=== PATIENT | female | born 1950 | race Caucasian/White ===

== ENCOUNTER → 2021-12-17 14:37 | Outpatient (BNVA) | payer MEDICARE, SELFPAY | PROVIDERS: Visit Provider Nurse Practitioner | DX: E55.9 Vitamin D deficiency, unspecified (principal); Z13.6 Encounter for screening for cardiovascular disorders | CPT/HCPCS: 80053; 80061; 82306; 84443; 85025 ==

== ENCOUNTER → 2022-03-30 11:10 | Outpatient (BNVA) | payer MEDICARE, SELFPAY | PROVIDERS: Visit Provider Nurse Practitioner Family | DX: R05.9 Cough, unspecified (principal); J06.9 Acute upper respiratory infection, unspecified | CPT/HCPCS: 87426 ==

== ENCOUNTER → 2022-07-28 09:41 | Outpatient (BNVA) | payer MEDICARE, SELFPAY | PROVIDERS: PCP Nurse Practitioner; Visit Provider Nurse Practitioner | DX: M25.511 Pain in right shoulder (principal) | CPT/HCPCS: 73030 ==

== ENCOUNTER → 2023-01-25 12:04 | Outpatient (BNVA) | payer MEDICARE, SELFPAY | PROVIDERS: PCP Nurse Practitioner; Visit Provider Nurse Practitioner | DX: Z13.6 Encounter for screening for cardiovascular disorders (principal) | CPT/HCPCS: 80053; 80061; 85025 ==

== ENCOUNTER 2023-02-09 14:23 | Outpatient (CLI) | payer MEDICARE, SELFPAY ==
--- NOTE | 2023-02-09 14:36 | MM_ITS ---
WS: [id number] Bilateral screening 3D tomosynthesis digital mammogram, 02/09/2023 Clinical Data: Z12.31 - Encounter for screening mammogram for malignant ... Comparison: 04/01/2021 Findings: The breast parenchymal pattern shows fibroglandular tissue. No spiculated masses or clustered calcifi cations are seen. There are no secondary signs of carcinoma. There are intact bilateral augmentation mammoplasty implants. Impression: 1. Negative bilateral mammogram unchanged. 2. Recommend annual screening mammograms. MM/[place] [id number] BIRADS: 1-Negative FOLLOW UP: 1 Year Follow-up The CAD truckload checker was used.
== END 2023-02-09 14:24 | disposition home or self-care (01) ==
PROVIDERS: PCP Nurse Practitioner; Visit Provider Nurse Practitioner
DX: Z12.31 Encounter for screening mammogram for malignant neoplasm of breast (principal); Z98.82 Breast implant status
CPT/HCPCS: 77063; 77067

== ENCOUNTER → 2023-12-05 15:38 | Outpatient (BNVA) | payer MEDICARE, SELFPAY | PROVIDERS: PCP Nurse Practitioner; Visit Provider Nurse Practitioner | DX: R39.9 Unspecified symptoms and signs involving the genitourinary system (principal) | CPT/HCPCS: 81000 ==

== ENCOUNTER 2024-01-04 11:49 | Outpatient (CLI) | payer MEDICARE, SELFPAY ==
--- NOTE | 2024-01-04 12:00 | US_ITS ---
WS: [email or web address] ULTRASOUND RENAL TECHNIQUE: Ultrasound examination of both kidneys. CLINICAL INFORMATION: R39.11 - Hesitancy of micturition COMPARISON: FINDINGS: RIGHT: Mild dilatation RIGHT renal pelvis likely due to mild hydronephrosis. Echogenicity: Normal. Cortical thickness: 1.0 cm; Normal. Hydronephrosis: Mild Perinephric fluid: None. Right kidney measures: 9.0 cm x 5.0 cm x 4.3 cm. LEFT: Left kidney is normal in size and appearance. Echogenicity: Normal. Cortical thickness: 1.2 cm; Normal. Hydronephrosis: None. Perinephric fluid: None. Left kidney measures: 8.5 cm x 4.8 cm x 4.0 cm. Normal visualized aorta. Bladder volume Prevoid bladder: 6.5 cm x 7.8 cm x 5.9 cm; estimated volume 155.7 ml. Postvoid bladder: 3.4 cm x 1.4 cm x 1.1 cm; estimated volume 2.7 ml. US/US renal BI with PV bladder IMPRESSION: 1. Mild dilatation of the RIGHT renal pelvis. Noncontrast CT abdomen pelvis ca n be performed to evaluate for obstruction. 2. No hydronephrosis LEFT kidney. 3. Prevoid bladder volume 155 cc. Post void bladder volume 2.7 cc. 4. Normal bladder emptying.
== END 2024-01-04 11:50 | disposition home or self-care (01) ==
LOC: RAD 11:50
PROVIDERS: PCP Nurse Practitioner; Visit Provider Nurse Practitioner
DX: R39.11 Hesitancy of micturition (principal)
CPT/HCPCS: 76770; 76857

== ENCOUNTER 2024-01-13 10:32 | Outpatient (CLI) | payer MEDICARE, SELFPAY ==
--- NOTE | 2024-01-13 10:45 | CT_ITS ---
WS: [id number] CT ABDOMEN AND PELVIS NONCONTRAST HISTORY: N28.89 - Other specified disorders of kidney and ureter TECHNIQUE: Imaging performed through the abdomen and pelvis. Coronal and sagittal reformats are submi tted. All CT scans at [facility] use at least one of these dose optimization techniques: auto mated exposure control; mA and/or kV adjustment per patient size (includes targeted exams where dose is matched to clinical indication); or iterative reconstruction. DLP: 252.31 mGy.cm COMPARISON: 01/04/2024 Lower thorax: Lung bases are clear. 5 mm pleural nodule LEFT lung base. There are a few additional ve ry small nodules in the RIGHT lower thorax and along the RIGHT fissure. Liver: Normal size. Low-attenuation 4 mm mass LEFT lobe of the liver may be a small cyst. Gallbladder: Normal gallbladder. No pericholecystic fluid or cholelithiasis. No gallbladder wall thic kening. Pancreas: Poorly visualized without IV contrast. Spleen: Normal. Adrenal glands: Normal. No mass. Right kidney: Normal size kidney. No calyceal dilatation. Prominent renal pelvis described by ultraso und is most likely an extrarenal pelvis. No mass or obstruction identified. The mid to distal ureter is normal. Left kidney: Normal size kidney with no mass or hydronephrosis. Aorta: Mild atherosclerosis abdominal aorta with no aneurysm. No free fluid, intraperitoneal air or significant lymphadenopathy. GI tract: No obstruction. Mild constipation. Abdominal wall: Negative. No hernia. Pelvis: Prior hysterectomy. No free fluid or adenopathy. Osseous structures: Unremarkable. CT/CT abdomen pelvis wo con [id number] IMPRESSION: 1. No calyceal dilatation of the RIGHT kidney. Prominent renal pelvis is proba howie an extrarenal pelvis and not hydronephrosis. 2. No ureteral dilatation obstruction. 3. Very small bibasilar pulmonary nodules. Consider 12-month noncontrast chest CT follow-up.
[2024-01-13] MEDS: iohexol 350 mg/mL 500 mL Btl (per mL) PO (10:46)
== END 2024-01-13 10:33 | disposition home or self-care (01) ==
LOC: RAD 10:33
PROVIDERS: PCP Nurse Practitioner; Visit Provider Nurse Practitioner
DX: N28.89 Other specified disorders of kidney and ureter (principal); R91.8 Other nonspecific abnormal finding of lung field; R16.0 Hepatomegaly, not elsewhere classified; Z90.49 Acquired absence of other specified parts of digestive tract
CPT/HCPCS: 74176; Q9967

== ENCOUNTER → 2024-01-30 10:41 | Outpatient (BNVA) | payer MEDICARE, SELFPAY | PROVIDERS: PCP Nurse Practitioner; Visit Provider Nurse Practitioner | DX: E04.9 Nontoxic goiter, unspecified (principal) | CPT/HCPCS: 84439; 84443; 84481 ==

== ENCOUNTER 2024-02-22 10:03 | Outpatient (CLI) | payer MEDICARE, SELFPAY ==
--- NOTE | 2024-02-22 10:15 | US_ITS ---
WS: [id number] THYROID ULTRASOUND HISTORY: E04.9 - Nontoxic goiter, unspecified COMPARISON: None available. Right lobe: 2.1 cm x 2.6 cm x 4.1 cm (w x ap x l). Volume: 10.4 cm3. Enlarged heterogeneous gland. Large isoechoic nodule in the central gland with a few cystic areas lai sures 2.2 x 1.6 x 2.0 cm. There is similar smaller nodule scattered throughout the gland. There is mi ld increased vascularity. Left lobe: 1.8 cm x 2.1 cm x 4.2 cm (w x ap x l). Volume: 7.4 cm3. Enlarged gland with multiple nodules. Nodules are ill-defined. There is one nodule which contains mac rocalcifications which appears to be in the central gland with posterior shadowing. This nodule measu res 1.9 x 1.9 x 2.5 cm. Isthmus: 0.6 cm. US/US thyroid [id number] IMPRESSION: 1. Enlarged heterogeneous thyroid. 2. Multiple nodules bilaterally. Some of these are isoechoic to the gland and contain cystic components. 3. TR4; nodule within the mid LEFT thyroid which contains calcification. This is the most suspicious nodule measuring 1.9 x 1.9 x 2.5 cm. Recommend ultrasoun d-guided FNA.
== END 2024-02-22 10:04 | disposition home or self-care (01) ==
LOC: RAD 10:04
PROVIDERS: PCP Nurse Practitioner; Visit Provider Nurse Practitioner
DX: E04.2 Nontoxic multinodular goiter (principal)
CPT/HCPCS: 76536

== ENCOUNTER → 2024-03-06 09:43 | Outpatient (BNVA) | payer MEDICARE, SELFPAY | PROVIDERS: PCP Nurse Practitioner; Referring Provider Nurse Practitioner; Visit Provider Nurse Practitioner Family | DX: D48.5 Neoplasm of uncertain behavior of skin (principal); K82.0 Obstruction of gallbladder; D22.4 Melanocytic nevi of scalp and neck; L57.8 Other skin changes due to chronic exposure to nonionizing radiation; D18.01 Hemangioma of skin and subcutaneous tissue | CPT/HCPCS: 11102; 17000; 17110; 99203 ==

== ENCOUNTER 2024-03-30 08:51 | Outpatient (CLI) | payer MEDICARE, SELFPAY ==
--- NOTE | 2024-03-30 10:00 | US_ITS ---
WS: [email or web address] ULTRASOUND-GUIDED LEFT THYROID NODULE FNA HISTORY: E04.1 - Nontoxic single thyroid nodule Procedure, risks, and complications were explained to the patient. Consent has been obtained. Prior imaging studies are reviewed. The skin is cleansed with ChloraPrep and anesthetized with 1% buffered lidocaine. FNA performed with 25 gauge needles. production technologist is present to fix slides. US/US biopsy/FNA thyroid [id number] IMPRESSION: Uncomplicated FNA of a LEFT thyroid nodule. Final pathology results pending. Patient did experience a small amount of bleeding adjacent to the nodule at the procedure time. Hematoma did not progress and patient was watched post procedu re ensuring no enlargement of the hematoma.
== END 2024-03-30 08:52 | disposition home or self-care (01) ==
LOC: RAD 08:52
PROVIDERS: PCP Nurse Practitioner; Visit Provider Nurse Practitioner
DX: D34 Benign neoplasm of thyroid gland (principal)
CPT/HCPCS: 10005; 88173

== ENCOUNTER → 2024-05-25 08:47 | Outpatient (BNVA) | payer MEDICARE, SELFPAY | PROVIDERS: PCP Nurse Practitioner; Visit Provider Nurse Practitioner | DX: Z13.6 Encounter for screening for cardiovascular disorders (principal) | CPT/HCPCS: 80053; 80061; 85025 ==

== ENCOUNTER → 2024-06-18 10:42 | Outpatient (BNVA) | payer MEDICARE, SELFPAY | PROVIDERS: PCP Nurse Practitioner; Visit Provider Nurse Practitioner | DX: M51.34 Other intervertebral disc degeneration, thoracic region (principal); M85.88 Other specified disorders of bone density and structure, other site | CPT/HCPCS: 72072 ==

== ENCOUNTER 2024-06-22 12:48 | Outpatient (CLI) | payer MEDICARE, SELFPAY ==
--- NOTE | 2024-06-22 13:20 | MM_ITS ---
WS: [email or web address] BILATERAL 3D TOMOSYNTHESIS DIGITAL SCREENING MAMMOGRAPHY WITH CAD CLINICAL INFORMATION: Z12.31 - Encounter for screening mammogram for malignant ... HISTORY: Screening mammogram. No current complaints. COMPARISON: 2022 TECHNIQUE: Bilateral CC and MLO views. FINDINGS: Bilateral breast implants are stable in appearance. Mild capsular contractions. The breasts are composed of heterogeneous fibroglandular density tissue, which can limit the detectio n of small underlying mass lesions. No suspicious mass, asymmetry, calcifications, or architectural d istortion. No evidence of malignancy. Few tiny punctate calcifications. MM/MM [facility] tomosynthesis [id number] IMPRESSION: DENSITY: The breasts are heterogeneously dense, which may obscure small masses. BI-RADS: 2 - Benign FOLLOW UP: 1 Year Follow-up Recommend return to annual screening mammography.
--- NOTE | 2024-06-22 14:00 | XR_ITS ---
WS: [email or web address] DEXA (DUAL ENERGY X-RAY ABSORPTIOMETRY) Bone mineral density was performed using a Klinq machine. HISTORY: Z78.0 - Asymptomatic menopausal state COMPARISON: None available. Lumbar spine BMD (L1-L4): 0.875 g/cm2 T score: -2.5 Z score: -0.7 Total hip BMD: Left: 0.778 g/cm2. T score: -1.8 Z score: -0.1 Right: 0.785 g/cm2. T score: -1.8 Z score: 0.0 10 year probability of a major osteoporotic fracture is 22.7%. XR/XR DEXA axial skeleton* [id number] IMPRESSION: OSTEOPOROSIS based upon the WHO classification for females.
== END 2024-06-22 12:49 | disposition home or self-care (01) ==
LOC: RAD 12:49
PROVIDERS: PCP Nurse Practitioner; Visit Provider Nurse Practitioner
DX: Z12.31 Encounter for screening mammogram for malignant neoplasm of breast (principal); Z78.0 Asymptomatic menopausal state; Z98.82 Breast implant status; T85.44XA Capsular contracture of breast implant, initial encounter; R92.333 Mammographic heterogeneous density, bilateral breasts; X58.XXXA Exposure to other specified factors, initial encounter; M81.0 Age-related osteoporosis without current pathological fracture
CPT/HCPCS: 77063; 77067; 77080

== ENCOUNTER 2024-10-09 10:49 | Emergency (ER) | payer MEDICARE, SELFPAY ==
[2024-10-09 10:53] VITALS: BP 128/80; PULSE 70; TEMP 36.7; O2SAT 100
--- NOTE | 2024-10-09 11:18 | XRR_ITS ---
PROCEDURE INFORMATION: Exam: XR Chest Exam date and time: 10/09/2024 11:46 AM Age: 74 years old Clinical indication: Other: Weakness TECHNIQUE: Imaging protocol: Radiologic exam of the chest. Views: 1 view. Total images: 1 COMPARISON: CR XR thoracic spine 3V* [id number] 06/18/2024 10:41 AM FINDINGS: Lungs: Trace bibasilar atelectasis or scar. Pleural spaces: Unremarkable. No pleural effusion. No pneumothorax. Heart/Mediastinum: Unremarkable. No cardiomegaly. Bones/joints: Unremarkable. XR/XR chest 1V portable [id number] IMPRESSION: Trace bibasilar atelectasis or scar.
[2024-10-09 11:39] LABS: Basophils # 0.1 10^3/uL (0.0-0.1); Basophils % 1.2 %; Eosinophils # 0.1 10^3/uL (0.0-0.8); Eosinophils % 1.2 %; Hematocrit 38.9 % (36-47); Lymphocytes # 1.5 10^3/uL (0.8-4.8); Lymphocytes % 35.7 %; Mean Corpuscular HGB Conc 31.6 g/dL (30-55); Mean Corpuscular Hemoglobin 27.6 pg (27-33); Mean Corpuscular Volume 87.2 fl (85-98); Mean Platelet Volume 9.9 fL (7.4-10.4); Monocytes # 0.3 10^3/uL (0.2-0.9); Monocytes % 7.7 %; Neutrophils # 2.32 10^3/uL (1.8-7.7); Nucleated Red Blood Cells % 0 %; Platelet Count 263 10^3/cmm (157-399); Red Blood Count 4.46 10^6/uL (3.85-5.65); Red Cell Distribution Width 13.6 % (12.1-15.1); White Blood Count 4.29 10^3/uL (3.29-11.43)
[2024-10-09 11:57] LABS: Alanine Aminotransferase 9 U/L (0-33); Albumin Level 4.3 g/dL (3.5-5.2); Alkaline Phosphatase 88 U/L (35-105); Aspartate Amino Transferase 16 U/L (0-32); Blood Urea Nitrogen 16 mg/dL (8-23); Calcium 9.3 mg/dL (8.5-10.5); Carbon Dioxide 28 mmol/L (22-29); Chloride 105 mmol/L (98-107); Creatinine Clr Calc Pharmacy 45.7755; Globulin 2.7 g/dL (1.3-4.6); Glucose 94 mg/dL (65-115); Lipase 43 U/L (13-60); Osmolality Calculated 293 mOsm/kg (285-295); Sodium 141 mmol/L (136-145); Total Bilirubin 0.7 mg/dL (0.15-1.2)
--- NOTE | 2024-10-09 12:08 | ECG_ITS ---
[facility]: 2024-10-09 Pat Name: Guerline Soria Department: Room: Gender: Female Remote Recruiter: : 1950 Requested By: Jazmyne Weber Order Number: [id number] Jose Daniel MD: Aramis Rubin M.D. Measurements Intervals [place] Rate: 69 P: 75 [place]: 142 QRS: 79 QRSD: 86 T: 72 QT: 375 QTc: 403 Interpretive Statements SINUS RHYTHM No previous ECG available for comparison Electronically Signed On 10-09-2024 17:42:04 CDT by Aramis Rubin M.D. [id number]
--- NOTE | 2024-10-09 13:04 | CT_ITS ---
WS: [email or web address] CT HEAD TECHNIQUE: Noncontrast CT of the head obtained from the skullbase to the vertex. CLINICAL INFORMATION: facial droop COMPARISON: None. DLP: 1420.[address] scans at [facility] use at least one of these dose optimization techniques: automated exposure control; mA and/or kV adjustment per patient size (includes targeted exams where dose is matched to clinical indication); or iterative reconstruction. FINDINGS: No evidence of intracranial hemorrhage or mass effect. Ventricular system and basal cisterns are patent. No extra-axial fluid collections. No evidence of mass or mass effect. Minimal small vessel changes. Paranasal sinuses and mastoid air cells are well aerated. .Normal visualized soft tissues. CT/CT head wo con* [id number] IMPRESSION: 1. No evidence of intracranial hemorrhage or mass effect. 2. No acute intracranial findings. Notified Jazmyne Weber MD at 10/09/2024 1:50 PM.
--- NOTE | 2024-10-09 13:04 | CT_ITS ---
WS: [email or web address] CTA HEAD AND NECK TECHNIQUE: Contrast enhanced CTA of the head and neck with coronal and sagittal reformatted images and maximum intensity projection (MIP) images. NASCET criteria utilized. CLINICAL INFORMATION: facial droop COMPARISON: None. DLP: 1420.[address] scans at [facility] use at least one of these dose optimization techniques: automated exposure control; mA and/or kV adjustment per patient size (includes targeted exams where dose is matched to clinical indication); or iterative reconstruction. FINDINGS: RIGHT: No significant RIGHT ICA stenosis. LEFT: No significant LEFT ICA stenosis. Codominant and patent vertebral arteries bilaterally. Proximal basilar artery is patent. INTRACRANIAL CTA: Basilar artery is patent. Normal vascularity to the GERMINATION WORKER territory bilaterally. Both ICAs are patent at the skull base. Normal vascularity to the GILMAR territory. Normal vascularity to the MCA territory bilaterally. Patent RIGHT posterior communicating artery. Multinodular thyroid. Moderate spondylitic changes cervical spine. CT/CT angio headneck* [id number] IMPRESSION: 1. Normal head and neck CTA 2. No cervical ICA stenosis. 3. No flow-limiting intracranial stenosis.
--- NOTE | 2024-10-09 13:05 | W.ED.NECK ---
HPI - Neck Pain/Injury General: Chief Complaint: Neck Pain/Injury Stated Complaint: stroke like symptoms Time Seen by Provider: 10/09/24 12:52 Source: patient Mode of arrival: ambulatory Limitations: no limitations History of Present Illness: 74-year-old female states she has been having left-sided neck pain over the last 3 days she states that she saw urgent care and they believe is a muscle strain states that is worse with movement and touch she been on muscle accidents states she woke up this morning went to brush her teeth and now she is having some left-sided facial droop and could not keep the water in her mouth she has no other focal deficits denies any slurred speech denies any weakness is ambulatory denies any vision changes Associated symptoms: Denies difficulty walking, headache(s) or nausea Related Data Home Medications ?Medication ?Instructions ?Recorded ?Confirmed calcium 500 mg (as 1 tab PO BID 07/15/22 10/09/24 carbonate)-vitamin D3 15 mcg (600 unit) tablet (Os-Gaurav 500 + D3) Previous Rx's ?Medication ?Instructions ?Recorded fluticasone propionate 50 1 spray intranasal BID #48 grams 07/04/24 mcg/actuation nasal spray,suspension ibandronate 150 mg tablet 150 mg PO .monthly #3 tabs 07/04/24 meloxicam 7.5 mg tablet 7.5 mg PO .every other day #90 tabs 07/04/24 cyclobenzaprine 5 mg tablet 5 mg PO TID PRN muscle spasm #30 10/08/24 tabs acyclovir 800 mg tablet 800 mg PO TID 5 days #15 tabs 10/09/24 prednisone 50 mg tablet 50 mg PO DAILY #5 tabs 10/09/24 Allergies Allergy/AdvReac Type Severity Reaction Status Date / Time erythromycin base AdvReac Intermediate ADR-Vomitin Verified 10/09/24 11:01 g Review of Systems Const: Denies: fever(s), chills, body aches or change in appetite Eyes: Denies: blurry vision or eye discomfort ENMT: Denies: throat pain or dental pain Card: Denies: chest pain Resp: Denies: dyspnea GI: Denies: abdominal pain, nausea, vomiting or diarrhea Musc: Reports: neck pain; Denies: back pain Skin/Breast: Denies: rash Neuro: Denies: headache(s), numbness in extremities, weakness in extremities or difficulty walking [facility] PFSH: Medical History Osteoporosis Environmental allergies Liver hemangioma Gluten intolerance History of radioactive iodine thyroid ablation in childhood less 11 years old. No thyroid replacement needed History of squamous cell carcinoma breast History of basal cell cancer face two removed Surgical History History of colonoscopy with polypectomy 2019 History of abdominal hysterectomy 2000 with oophorectomy History of removal of cyst Left foot Family History Mother Cancer Dementia Father Dementia Denies family history of Diabetes CAD (coronary artery disease) Chronic kidney disease (CKD) Hypertension Social History Smoking and tobacco/nicotine status: never used tobacco/nicotine Second hand smoke exposure: No Alcohol intake: never Substance/Drug Use: never Adopted: No Caregiver/support person: Yes Lives independently: Yes Household members: significant other Housing: House Marital status: Life Partner Number of children: 0 service: No Current occupational status: employed and retired Current occupation: Sub teacher Pets and animals: No Do you think of yourself as: Straight/Heterosexual Current gender identity: Female Physical Exam Const: COMMON NORMALS: no acute distress, patient oriented x3 and healthy appearing HENMT: COMMON NORMALS: normocephalic and atraumatic HEAD & SCALP: normocephalic and atraumatic Eye: COMMON NORMALS: Equal, round and reactive pupils present and EOMs intact bilaterally PUPIL: Yes Equal, round and reactive pupils present Neck/C-Spine: COMMON NORMALS: full ROM and supple OTHER: Tenderness noted along left trapezius Chest: COMMONS NORMALS: normal inspection of the chest Resp: COMMON NORMALS: normal respiratory effort, No retractions, No use of accessory muscles and clear to auscultation bilaterally AUSCULTATION: clear to auscultation bilaterally Cardio: COMMON NORMALS: regular rate RATE: regular rate Extremity: COMMON NORMALS: normal to inspection and full ROM Neuro: COMMON NORMALS: patient oriented x3 and moves all extremities SPEECH: speech normal GAIT: Yes Normal gait present MOTOR EXAM: 5/5 motor strength present throughout OTHER: Slight left-sided facial droop noted Psych: COMMON NORMALS: mental status grossly normal, Normal thought process present and cooperative THOUGHT PROCESS: Normal thought process present Skin: COMMON NORMALS: no rashes or lesions noted and no wounds GENERAL SKIN EXAM: no rashes or lesions noted Course Vital Signs: Vital signs: Vital Signs Temperature 98.1 F 10/09/24 10:53 Pulse Rate 77 10/09/24 13:06 Blood Pressure 124/78 10/09/24 13:06 Pulse Oximetry 99 10/09/24 13:06 Oxygen Delivery Me thod Room Air 10/09/24 13:06 MDM - Neck Pain/Injury Medical Decision Making Patient presents with 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 Medical Records I reviewed the patient's medical records. Lab Data I reviewed the patient's lab results. 10/09/24 11:31 10/09/24 11:31 Radiology Impressions Chest X-Ray 10/09/24 11:18 IMPRESSION: Trace bibasilar atelectasis or scar. Head CT 10/09/24 13:04 IMPRESSION: 1. No evidence of intracranial hemorrhage or mass effect. 2. No acute intracranial findings. Notified Jazmyne Weber MD at 10/09/2024 1:50 PM. Head/Neck CTA 10/09/24 13:04 IMPRESSION: 1. Normal head and neck CTA 2. No cervical ICA stenosis. 3. No flow-limiting intracranial stenosis. Laboratory Results WBC 4.29 10^3/uL (3.29-11.43) 10/09/24 11:31 RBC 4.46 10^6/uL (3.85-5.65) 10/09/24 11:31 Hgb 12.30 g/dL (11.27-16.99) 10/09/24 11:31 Hct 38.9 % (36-47) 10/09/24 11:31 MCV 87.2 fl (85-98) 10/09/24 11:31 MCH 27.6 pg (27-33) 10/09/24 11:31 MCHC 31.6 g/dL (30-55) 10/09/24 11:31 RDW 13.6 % (12.1-15.1) 10/09/24 11:31 Plt Count 263 10^3/cmm (157-399) 10/09/24 11:31 MPV 9.9 fL (7.4-10.4) 10/09/24 11:31 Neut % (Auto) 54.0 % 10/09/24 11:31 Lymph % (Auto) 35.7 % 10/09/24 11:31 [place] % (Auto) 7.7 % 10/09/24 11:31 Eos % (Auto) 1.2 % 10/09/24 11:31 Baso % (Auto) 1.2 % 10/09/24 11:31 Neut # (Auto) 2.32 10^3/uL (1.8-7.7) 10/09/24 11:31 Lymph # (Auto) 1.5 10^3/uL (0.8-4.8) 10/09/24 11:31 [place] # (Auto) 0.3 10^3/uL (0.2-0.9) 10/09/24 11: Eos # (Auto) 0.1 10^3/uL (0.0-0.8) 10/09/24 11:31 Baso # (Auto) 0.1 10^3/uL (0.0-0.1) 10/09/24 11: Nucleated RBC % (auto) 0 % 10/09/24 11: Nucleated RBCs # 0.0 /100WBC 10/09/24 11: PT 12.80 SECONDS (12.1-14.9) 10/09/24 11: INR 0.90 (0.8-1.2) 10/09/24 11:31 Sodium 141 mmol/L (136-145) 10/09/24 11:31 Potassium 4.0 mmol/L (3.5-5.1) 10/09/24 11:31 Chloride 105 mmol/L (98-107) 10/09/24 11:31 Carbon Dioxide 28 mmol/L (22-29) 10/09/24 11:31 Anion Gap 12.0 (5-19) 10/09/24 11:31 BUN 16 mg/dL (8-23) 10/09/24 11:31 Creatinine 0.9 mg/dL (0.5-0.9) 10/09/24 11:31 GFR Calculation Not Reportable 10/09/24 11:31 Glucose 94 mg/dL (65-115) 10/09/24 11:31 Calculated Osmolality 293 mOsm/kg (285-295) 10/09/24 11:31 Calcium 9.3 mg/dL (8.5-10.5) 10/09/24 11:31 Total Bilirubin 0.7 mg/dL (0.15-1.2) 10/09/24 11:31 AST 16 U/L (0-32) 10/09/24 11:31 ALT 9 U/L (0-33) 10/09/24 11:31 Alkaline Phosphatase 88 U/L (35-105) 10/09/24 11:31 Total Protein 7.0 g/dL (6.6-8.7) 10/09/24 11:31 Albumin 4.3 g/dL (3.5-5.2) 10/09/24 11:31 Globulin 2.7 g/dL (1.3-4.6) 10/09/24 11:31 Lipase 43 U/L (13-60) 10/09/24 11:31 Urine Color Yellow (Yellow) 10/09/24 13:11 Urine Appearance Clear (CLEAR) 10/09/24 13:11 Urine pH 8.0 (5-7) A 10/09/24 13:11 Ur Specific Gabriels 1.008 (1.005-1.030) 10/09/24 13:11 Urine Protein Negative (Negative) 10/09/24 13:11 Urine Glucose (UA) Negative (Normal) 10/09/24 13:11 Urine Ketones Negative (Negative) 10/09/24 13:11 Urine Blood Negative (Negative) 10/09/24 13:11 Urine Nitrate Negative (Negative) 10/09/24 13:11 Urine Bilirubin Negative (Negative) 10/09/24 13:11 Urine Urobilinogen 0.2 mg/dL (Negative) 10/09/24 13:11 Ur Leukocyte Esterase Trace (Negative) A 10/09/24 13:11 Urine RBC 0-2 /hpf (0-2) 10/09/24 13:11 Urine WBC 0-5 /hpf (0-5) 10/09/24 13:11 Ur Squamous Epith Cells 0-5 /hpf (0-5) 10/09/24 13:11 Amorphous Sediment Not Reportable 10/09/24 13:11 Urine Bacteria None seen /hpf (NONE) 10/09/24 13:11 Hyaline Casts 0-4 /lpf H 10/09/24 13:11 All radiology interpretation(s) finalized by discharge Discharge Plan Discharge Patient Disposition: Home Clinical Impression: Reyes's palsy Condition: Stable Prescriptions: New prednisone 50 mg tablet 50 mg PO DAILY Qty: 5 0RF acyclovir 800 mg tablet 800 mg PO TID 5 Days Qty: 15 0RF No Action calcium carbonate-vitamin D3 [Os-Gaurav 500 + D3] 500 mg-15 mcg (600 unit) tablet 1 tab PO BID ibandronate 150 mg tablet 150 mg PO .monthly Qty: 3 1RF fluticasone propionate 50 mcg/actuation spray,suspension 1 spray intranasal BID Qty: 48 1RF Rx Instructions: administer into each nostril meloxicam 7.5 mg tablet 7.5 mg PO .every other day Qty: 90 1RF cyclobenzaprine 5 mg tablet 5 mg PO TID PRN (Reason: muscle spasm) Qty: 30 0RF Discharge Orders: Discharge ED (Routine); Ordered 10/09/24 Ordered By: Jazmyne Weber Referrals: Malena Mena, [facility] [Primary Care Provider, Family Practice] Discharge Diet: Advance as tolerated Discharge Activity: Resume usual activity Patient Instructions: Reyes Palsy (ED) Print Language: Guamanian Coding Level of Care Code ED Lead Fire Protection Engineer for Kristig Latricia NIH stroke score NIHSS Level Of Consciousness - 1a: 0 Level Of Consciousness Questions - 1b: Both Correct Level Of Consciousness Commands - 1c: Both Correct Best Gaze - 2: Normal Visual [place] - 3: No Visual Loss Facial Palsy - 4: Minor Paralysis Motor Arm Right - 5: No Drift Motor Arm Left - 5: No Drift Motor Leg Right - 6: No Drift Motor Leg Left - 6: No Drift Limb Ataxia - 7: Absent Sensory - 8: Normal Best Language - 9: No Aphasia Dysarthia - 10: Normal Extinction And Inattention - 11: 0 Score Total Score: 1
[2024-10-09 13:06] VITALS: BP 124/78; PULSE 77; O2SAT 99
[2024-10-09 13:22] LABS: Bilirubin Urine Negative (Negative); Blood Urine Negative (Negative); Glucose Urine UA Negative (Normal); Ketones Urine Negative (Negative); Leukocyte Esterase Urine Trace (Negative); Nitrate Urine Negative (Negative); Protein Urine Negative (Negative); Specific Gravity, Urine 1.008 (1.005-1.030); Urine Appearance Clear (CLEAR); Urine Color Yellow (Yellow); Urobilinogen Urine 0.2 mg/dL (Negative)
[2024-10-09 13:24] LABS: Add Urine Microscopic? YES; Bacteria Urine None Seen /hpf; Hyaline Casts Urine 0-4 /lpf; RBC Urine 0-2 /hpf (0-2); Squamous Epithelial Cell Urine 0-5 /hpf (0-5); WBC Urine 0-5 /hpf (0-5)
[2024-10-09] MEDS: iohexol 350 mg/mL 500 mL Btl (per mL) IV (13:33)
[2024-10-09 14:44] VITALS: BP 146/86; PULSE 74; O2SAT 98
== END 2024-10-09 14:45 | disposition home or self-care (01) ==
PROVIDERS: Emergency Provider Emergency Medicine; PCP Nurse Practitioner
DX: G51.0 Bell's palsy (principal); Z85.828 Personal history of other malignant neoplasm of skin
CPT/HCPCS: 36415; 70450; 70496; 70498; 71045; 80053; 81001; 83690; 85025; 85610; 93005; 99285

== ENCOUNTER → 2024-11-12 09:53 | Outpatient (BNVA) | payer MEDICARE, SELFPAY | PROVIDERS: PCP Nurse Practitioner; Visit Provider Nurse Practitioner | DX: E78.2 Mixed hyperlipidemia (principal); M81.0 Age-related osteoporosis without current pathological fracture; E55.9 Vitamin D deficiency, unspecified | CPT/HCPCS: 80061; 82306 ==

== ENCOUNTER 2025-02-27 14:58 | Outpatient (CLI) | payer MEDICARE, SELFPAY ==
--- NOTE | 2025-02-27 15:30 | CT_ITS ---
WS: [email or web address] CT chest wo con [id number] HISTORY: R91.1 - Solitary pulmonary nodule TECHNIQUE: Axial imaging performed through the thorax. Coronal and sagittal reformats are submitted. All CT scans at [facility] use at least one of these dose optimization techniques: automated exposure control; mA and/or kV adjustment per patient size (includes targeted exams where dose is matched to clinical indication); or iterative reconstruction. CONTRAST: None DLP: 216.38 mGy.cm COMPARISON: CT 01/13/2024 Lungs and central airway: 2 mm nodule superior segment LEFT lower lobe. No change in the 5 mm pleural-based nodule at the LEFT lung base. No new nodules or nodules enlarging. No pulmonary mass or pneumonia. Pleura: No effusion. Heart and pericardium: Normal size heart with no pericardial effusion. Mediastinum and susana: No mediastinum or hilar adenopathy. Vessels: Mild atherosclerosis aorta. Chest wall and lower neck: Thyroid is enlarged and heterogeneous extending substernal. Prior biopsy has been performed at the thyroid also. Bilateral breast implants. Upper abdomen: Normal. Osseous structures: Mild increase in thoracic kyphosis. Disc spaces remain narrowed. CT/CT chest wo con [id number] IMPRESSION: 1. Stable 5 mm lower base nodule LEFT lung base since 01/13/2024. No additional follow-up necessary. 2. No pneumonia. 3. Multinodular thyroid extends substernal. Probably a goiter. Prior thyroid b iopsy has been performed.
== END 2025-02-27 14:59 | disposition home or self-care (01) ==
PROVIDERS: PCP Nurse Practitioner; Visit Provider Nurse Practitioner
DX: R91.1 Solitary pulmonary nodule (principal); E04.9 Nontoxic goiter, unspecified; M40.204 Unspecified kyphosis, thoracic region
CPT/HCPCS: 71250

== ENCOUNTER 2025-03-12 14:59 | Emergency (ER) | payer MEDICARE, SELFPAY ==
[2025-03-12 15:03] VITALS: BP 136/71; PULSE 79; TEMP 36.5; O2SAT 98; BMI 24.5
--- NOTE | 2025-03-12 15:08 | ECG_ITS ---
[facility]12 Pat Name: Guerline Soria Department: Room: Gender: Female Crm Business Analyst: : 1950 Requested By: Garrick Rosales Order Number: [id number] Jose Daniel MD: Aramis Rubin M.D. Measurements Intervals [place] Rate: 72 P: 56 [place]: 140 QRS: 64 QRSD: 83 T: 49 QT: 389 QTc: 426 Interpretive Statements SINUS RHYTHM NONSPECIFIC T-WAVE ABNORMALITY INTERPRETATION BASED ON A DEFAULT AGE OF 40 YEARS Compared to ECG 10/09/2024 12:08:42 T-wave abnormality now present Electronically Signed On 03-12-2025 15:31:54 CDT by Aramis Rubin M.D. [email or web address] [id number]
--- NOTE | 2025-03-12 15:12 | W.ED.HA ---
HPI - Headache General: Chief Complaint: Headache Stated Complaint: right face pain/ lightheaded and cold sweats 45min Time Seen by Provider: 03/12/25 15:12 History of Present Illness: 74-year-old female presents emergency room complaining of facial pain and numbness she has sudden onset headache with dizziness. The headache was bilateral she felt very dizzy lasted for nearly an hour. She was really breathing rapidly during this time developed a sensation of shortness of breath and discomfort with deep ventilation. By the time she arrived here all of her symptoms are resolved. She did have some pain that radiated to her back never had any chest pain. No vomiting no diarrhea no loss conscious no recent head trauma Associated symptoms: Deny chest pain, fever(s) or rash Related Data Home Medications ?Medication ?Instructions ?Recorded ?Confirmed calcium 600 mg (as 1 tab PO DAILY 03/12/25 03/12/25 carbonate)-vitamin D3 5 mcg (200 unit) tablet coenzyme Q10 100 mg capsule 100 mg PO DAILY 03/12/25 03/12/25 (CoQ-10) cyanocobalamin (vitamin B-12) 500 500 mcg PO DAILY 03/12/25 03/12/25 mcg tablet (Vitamin B-12) glucosamine sulf dipot 1 cap PO DAILY 03/12/25 03/12/25 chlr,msm,chond 550 mg-C 30 mg-alis 1 mg capsule (Glucosamine Chondroitin) [id number]-[id number]-[id number] ac 400 1 tab PO DAILY 03/12/25 03/12/25 mcg-calcium carb 500 mg-vit K1 20 mcg tablet niacinamide 250 mg tablet 250 mg PO DAILY 03/12/25 03/12/25 Previous Rx's ?Medication ?Instructions ?Recorded fluticasone propionate 50 1 spray intranasal BID #48 grams 11/12/24 mcg/actuation nasal spray,suspension ibandronate 150 mg tablet 150 mg PO .monthly #3 tabs 11/12/24 meloxicam 7.5 mg tablet 7.5 mg PO .every other day #90 tabs 11/12/24 Allergies Allergy/AdvReac Type Severity Reaction Status Date / Time erythromycin base AdvReac Intermediate ADR-Vomitin Verified 03/12/25 15:12 g Review of Systems Const: Denies: fever(s) or chills Card: Denies: chest pain Resp: Denies: dyspnea GI: Denies: abdominal pain : Denies: dysuria, urinary frequency or urinary urgency Musc: Denies: neck pain or back pain Skin/Breast: Denies: rash PFSH ED PFSH: Medical History Osteoporosis Environmental allergies Liver hemangioma Gluten intolerance History of radioactive iodine thyroid ablation in childhood less 11 years old. No thyroid replacement needed History of squamous cell carcinoma breast History of basal cell cancer face two removed Surgical History History of bilateral cataract extraction 2024 History of colonoscopy with polypectomy 2018 History of abdominal hysterectomy 2000 with oophorectomy History of removal of cyst Left foot Family History Mother Cancer Dementia Father Dementia Denies family history of Diabetes CAD (coronary artery disease) Chronic kidney disease (CKD) Hypertension Social History Smoking and tobacco/nicotine status: never used tobacco/nicotine Second hand smoke exposure: No Alcohol intake: never Substance/Drug Use: never Adopted: No Caregiver/support person: Yes Lives independently: Yes Household members: significant other Housing: House Marital status: Life Partner Number of children: 0 service: No Current occupational status: employed and retired Current occupation: Sub teacher Pets and animals: No Do you think of yourself as: Straight/Heterosexual Current gender identity: Female Physical Exam Const: COMMON NORMALS: no acute distress GENERAL APPEARANCE: cooperative and comfortable ORIENTATION/CONSCIOUSNESS: Yes awake, Yes oriented to person, Yes oriented to place and Yes oriented to time HENMT: COMMON NORMALS: normocephalic, atraumatic and hearing grossly normal bilaterally HEAD & SCALP: normocephalic and atraumatic Resp: COMMON NORMALS: normal respiratory effort, No retractions, No use of accessory muscles and clear to auscultation bilaterally AUSCULTATION: clear to auscultation bilaterally Cardio: COMMON NORMALS: regular rate, regular rhythm and No murmurs present (Cardio) RATE: regular rate RHYTHM: regular rhythm GI: COMMON NORMALS: Soft to palpation and No hepatosplenomegaly present AUSCULTATION: Yes normoactive bowel sounds PALPATION: Yes Soft to palpation, No Tenderness to palpation present (GI), No Guarding due to palpation present (GI) and Yes No hepatosplenomegaly present Extremity: COMMON NORMALS: normal to inspection, capillary refill normal, no clubbing, cyanosis or edema, no calf tenderness and no pedal edema Neuro: SENSORIUM/ORIENTATION: Yes oriented to person, Yes oriented to place and Yes oriented to time OTHER: NIH when patient first arrived is 0 Skin: COMMON NORMALS: no rashes or lesions noted GENERAL SKIN EXAM: no rashes or lesions noted Course Vital Signs: Vital signs: Vital Signs Temperature 97.7 F 03/12/25 15:03 Pulse Rate 68 03/12/25 16:57 Blood Pressure 133/76 03/12/25 16:57 Pulse Oximetry 98 03/12/25 16:57 Oxygen Delivery Me thod Room Air 03/12/25 16:00 MDM - Headache Medical Decision Making Symptoms are resolved neurologic exam when she arrived is negative. NIH score was 0. CT head negative patient is in no further symptoms no sign of any facial palsies. I think some of her symptoms may have been caused by migraine variant although was very self-limiting she describes an episode of hyperventilation which may have accounted for some of her symptoms as well currently with no findings we will go ahead and discharge home have her follow-up with her doctor as needed. Lab Data 03/12/25 15:49 03/12/25 15:[address] 03/12/25 15:20 IMPRESSION: No acute intracranial abnormality. Laboratory Results WBC 6.79 10^3/uL (3.29-11.43) 03/12/25 15:49 RBC 4.71 10^6/uL (3.85-5.65) 03/12/25 15:49 Hgb 12.80 g/dL (11.27-16.99) 03/12/25 15:49 Hct 39.5 % (36-47) 03/12/25 15:49 MCV 83.9 fl (85-98) L 03/12/25 15:49 MCH 27.2 pg (27-33) 03/12/25 15:49 MCHC 32.4 g/dL (30-55) 03/12/25 15:49 RDW 13.5 % (12.1-15.1) 03/12/25 15:49 Plt Count 285 10^3/cmm (157-399) 03/12/25 15:49 MPV 9.5 fL (7.4-10.4) 03/12/25 15:49 Neut % (Auto) 73.3 % 03/12/25 15:49 Lymph % (Auto) 19.1 % 03/12/25 15:49 [place] % (Auto) 5.0 % 03/12/25 15:49 Eos % (Auto) 1.0 % 03/12/25 15:49 Baso % (Auto) 1.3 % 03/12/25 15:49 Neut # (Auto) 4.97 10^3/uL (1.8-7.7) 03/12/25 15:49 Lymph # (Auto) 1.3 10^3/uL (0.8-4.8) 03/12/25 15:49 [place] # (Auto) 0.3 10^3/uL (0.2-0.9) 03/12/25 15:49 Eos # (Auto) 0.1 10^3/uL (0.0-0.8) 03/12/25 15:49 Baso # (Auto) 0.1 10^3/uL (0.0-0.1) 03/12/25 15:49 Nucleated RBC % (auto) 0 % 03/12/25 15:49 Nucleated RBCs # 0.0 /100WBC 03/12/25 15:49 Sodium 140 mmol/L (136-145) 03/12/25 15:49 Potassium 3.9 mmol/L (3.5-5.1) 03/12/25 15:49 Chloride 103 mmol/L (98-107) 03/12/25 15:49 Carbon Dioxide 26 mmol/L (22-29) 03/12/25 15:49 Anion Gap 14.9 (5-19) 03/12/25 15:49 BUN 21 mg/dL (8-23) 03/12/25 15:49 Creatinine 0.8 mg/dL (0.5-0.9) 03/12/25 15:49 GFR Calculation Not Reportable 03/12/25 15:49 Glucose 107 mg/dL (65-115) 03/12/25 15:49 Calculated Osmolality 293 mOsm/kg (285-295) 03/12/25 15:49 Calcium 10.1 mg/dL (8.5-10.5) 03/12/25 15:49 Total Bilirubin 0.6 mg/dL (0.15-1.2) 03/12/25 15:49 AST 16 U/L (0-32) 03/12/25 15:49 ALT 8 U/L (0-33) 03/12/25 15:49 Alkaline Phosphatase 99 U/L (35-105) 03/12/25 15:49 Total Protein 7.3 g/dL (6.6-8.7) 03/12/25 15:49 Albumin 4.5 g/dL (3.5-5.2) 03/12/25 15:49 Globulin 2.8 g/dL (1.3-4.6) 03/12/25 15:49 All radiology interpretation(s) finalized by discharge Discharge Plan Discharge Patient Disposition: Home Clinical Impression: Headache, Hyperventilation Condition: Stable Prescriptions: No Action meloxicam 7.5 mg tablet 7.5 mg PO .every other day Qty: 90 1RF ibandronate 150 mg tablet 150 mg PO .monthly Qty: 3 1RF fluticasone propionate 50 mcg/actuation spray,suspension 1 spray intranasal BID Qty: 48 1RF Rx Instructions: administer into each nostril calcium carbonate-vitamin D3 [Calcium + D] 600 mg-5 mcg (200 unit) Tablet 1 tab PO DAILY cyanocobalamin (vitamin B-12) [Vitamin B-12] 500 mcg Tablet 500 mcg PO DAILY coenzyme Q10 [CoQ-10] 100 mg Capsule 100 mg PO DAILY One-A-Day Women's 50 Plus 400 mcg-500 mg calcium-20 mcg Tablet 1 tab PO DAILY Glucosamine Chondroitin 550-30-1 mg Capsule 1 cap PO DAILY niacinamide 250 mg Tablet 250 mg PO DAILY Discharge Orders: Discharge ED (Routine); Ordered 03/12/25 Ordered By: Garrick Benitez Referrals: Malena Mena, SENIOR [employer]ELOPER[employer] [Primary Care Provider, Family Practice] Discharge Diet: Usual diet Discharge Activity: Resume usual activity Patient Instructions: Opioid Safety, Pain Management, Patient Portal & [place] Instructions Activity Restrictions/Additional Instructions: Thank you for choosing [facility] for your healthcare needs today. It is very important that you follow up as instructed or that you return to the Emergency Department should you have concerns or if your condition changes or worsens in any way. Emergency department visits are focused on emergent conditions, in some cases you may require further evaluation on an outpatient basis. You were seen after an episode that you described to having a headache rapid breathing and chest discomfort with inhalation. At the time you arrived in the emergency room all of your symptoms had resolved. There was no sign of acute stroke on your exam. CT of your head is negative your blood pressure was slightly elevated but not significantly. Other lab work is also unremarkable. Suspect some of this may have been related to the headache and 2 episode of rapid breathing (hyperventilation). Recommend you follow-up with your primary care doctor return if you have any further problems. (Please note that included in your discharge packet is information concerning opioid safety and pain management. This information is given to all patients were discharged from the ER regardless of their discharge diagnosis or the medicines they usually take or are prescribed.) Print Language: Vincentian Coding Level of Care Code ED Medical Appointment Scheduler for Frantz Rome
--- NOTE | 2025-03-12 15:20 | CTR_ITS ---
PROCEDURE INFORMATION: Exam: CT Head Without Contrast Exam date and time: 03/12/2025 3:32 PM Age: 74 years old Clinical indication: Pain; Headache wo vision changed; No known trauma; Additional info: Head ache TECHNIQUE: Imaging protocol: Computed tomography of the head without contrast. Radiation optimization: All CT scans at this facility use at least one of these dose optimization techniques: automated exposure control; mA and/or kV adjustment per patient size (includes targeted exams where dose is matched to clinical indication); or iterative reconstruction. COMPARISON: CT angio headneck* [id number] 10/09/2024 1:24 PM RADIATION DOSE METRICS: Total DLP (mGy-cm): 1003.34 FINDINGS: Brain: Normal. No hemorrhage. Unremarkable white matter. No mass effect. Cerebral ventricles: No ventriculomegaly. Paranasal sinuses: Visualized sinuses are unremarkable. No fluid levels. Mastoid air cells: Visualized mastoid air cells are well aerated. Bones: Unremarkable. No acute fracture. Soft tissues: Unremarkable. CT/CT head wo con* [id number] IMPRESSION: No acute intracranial abnormality.
[2025-03-12 15:58] LABS: Hematocrit 39.5 % (36-47); Hemoglobin 12.80 g/dL (11.27-16.99); Mean Corpuscular HGB Conc 32.4 g/dL (30-55); Mean Corpuscular Hemoglobin 27.2 pg (27-33); Mean Corpuscular Volume 83.9 fl (85-98); Nucleated Red Blood Cells % 0 %; Platelet Count 285 10^3/cmm (157-399); Red Blood Count 4.71 10^6/uL (3.85-5.65); White Blood Count 6.79 10^3/uL (3.29-11.43)
[2025-03-12 16:00] VITALS: BP 121/72; PULSE 71; O2SAT 96
[2025-03-12 16:18] LABS: Alanine Aminotransferase 8 U/L (0-33); Albumin Level 4.5 g/dL (3.5-5.2); Alkaline Phosphatase 99 U/L (35-105); Anion Gap 14.9 (5-19); Aspartate Amino Transferase 16 U/L (0-32); Blood Urea Nitrogen 21 mg/dL (8-23); Calcium 10.1 mg/dL (8.5-10.5); Carbon Dioxide 26 mmol/L (22-29); Chloride 103 mmol/L (98-107); Creatinine Clr Calc Pharmacy 51.6770; Globulin 2.8 g/dL (1.3-4.6); Glucose 107 mg/dL (65-115); Osmolality Calculated 293 mOsm/kg (285-295); Potassium 3.9 mmol/L (3.5-5.1); Sodium 140 mmol/L (136-145); Total Protein 7.3 g/dL (6.6-8.7)
[2025-03-12 16:57] VITALS: BP 133/76; PULSE 68; O2SAT 98
== END 2025-03-12 16:58 | disposition home or self-care (01) ==
PROVIDERS: Emergency Provider Family Medicine; PCP Nurse Practitioner
DX: R51.9 Headache, unspecified (principal); R06.4 Hyperventilation; Z85.3 Personal history of malignant neoplasm of breast; Z85.828 Personal history of other malignant neoplasm of skin
CPT/HCPCS: 36415; 70450; 80053; 85025; 93005; 99284

== ENCOUNTER → 2025-03-19 10:22 | Outpatient (BNVA) | payer MEDICARE, SELFPAY | PROVIDERS: PCP Nurse Practitioner; Visit Provider Nurse Practitioner Family | DX: L82.1 Other seborrheic keratosis (principal); L57.8 Other skin changes due to chronic exposure to nonionizing radiation; D18.01 Hemangioma of skin and subcutaneous tissue; L81.4 Other melanin hyperpigmentation; Z08 Encounter for follow-up examination after completed treatment for malignant neoplasm; Z85.828 Personal history of other malignant neoplasm of skin; D48.5 Neoplasm of uncertain behavior of skin | CPT/HCPCS: 11102; 99213 ==

== ENCOUNTER → 2025-05-14 13:22 | Outpatient (BNVA) | payer MEDICARE, SELFPAY | PROVIDERS: PCP Nurse Practitioner; Visit Provider Podiatrist Foot & Ankle Surgery | DX: M79.671 Pain in right foot (principal); M79.672 Pain in left foot; M21.611 Bunion of right foot; M21.612 Bunion of left foot; Q82.8 Other specified congenital malformations of skin | CPT/HCPCS: 73630; 99203 ==